=== PATIENT | female | born 1985 | race Caucasian/White ===

== ENCOUNTER 2017-12-08 21:00 | Emergency (ER) | payer OTHER ==
[2017-12-08 21:13] VITALS: BP 120/56; PULSE 74; TEMP 99; BMI 21.6
[2017-12-08] MEDS ORDERED: AMOX TR/POT CLAV 875MG/125MG TABLETS (FP) PO ONE (21:57)
--- NOTE | 2017-12-08 22:04 | PDOC ---
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 The patient was caring for a cat coming off of anesthesia and noted that he was coughing up phlegm. She decided to open up the cat's mouth and was bit, sustaining 2 puncture wounds to the left middle digit. The patient was previously bit by a cat and was treated with Augmentin and given a tetanus shot. She denies having any difficulty moving her fingers. She denies any other injuries or symptoms. 12/08/17 22:32 Allergies: dicofenac, NSAIDS. <Jazmyn Tan - Last Filed: 12/08/17 22:09> <Beth Peters - Last Filed: 12/09/17 02:49> - General Chief Complaint: Bite Stated Complaint: CAT BITE Time Seen by Provider: 12/08/17 21:10 Past History <Jazmyn Tan - Last Filed: 12/08/17 22:09> - Past Medical History CVA: No COPD: No DVT: No Dementia: No - Suicide/Smoking/Psychosocial Hx Smoking History: Never smoked Have you smoked in the past 12 months: No Hx Alcohol Use: No Drug/Substance Use Hx: No Substance Use Type: Alcohol <Beth Peters - Last Filed: 12/09/17 02:49> - Past Medical History Allergies/Adverse Reactions: Allergies Allergy/AdvReac Type Severity Reaction Status Date / Time diclofenac Allergy Verified 09/01/17 10:31 NSAIDS (Non-Steroidal Allergy Verified 09/01/17 10:31 Anti-Inflamma Home Medications: Ambulatory Orders Norethindrone AC-Eth Estradiol [Junel] 1 each PO DAILY 09/01/17 Amox-Tr/K Cl [Augmentin - 875Mg Tablet] 1 tab PO BID #14 tablet 12/08/17 Review of Systems - Review of Systems Able to Perform ROS?: Yes Comments:: 12/08/17 22:32 CONSTITUTIONAL: Absent: fever, no chills, no fatigue EYES: Absent: visual changes ENT: Absent: ear pain, no sore throat CARDIOVASCULAR: Absent: chest pain, no palpitations RESPIRATORY: Absent: cough, no SOB GI: Absent: abdominal pain, no nausea, no vomiting, no constipation, no diarrhea GENITOURINARY: Absent: dysuria, no frequency, no hematuria MUSKULOSKELETAL: Absent: back pain, no arthralgia, no myalgia SKIN: Present: (+)2 puncture wounds to left 3rd digit. Absent: rash NEURO: Absent: headache <Jazmyn Tan - Last Filed: 12/08/17 22:09> *Physical Exam - Vital Signs Last Vital Signs Temp Pulse Resp BP Pulse Ox 99.0 F 74 14 120/56 L 12/08/17 21:10 12/08/17 21:10 12/08/17 21:10 12/08/17 21:10 - Physical Exam Comments: 12/08/17 22:34 GENERAL: Well-appearing, well-nourished. No apparent distress. HEENT: Normocephalic, atraumatic. PERRL, EOM intact. CARDIOVASCULAR: Normal S1, S2. Regular rate and rhythm. PULMONARY: Clear to auscultation bilaterally. ABDOMEN: Soft, non-distended, non-tender. EXTREMITIES: (+)2 minute puncture wounds to the palmar surface of the 3rd digit of the left hand, mild erythema/edema of the distal phalanx without pain on passive/active motion. No lymphangitic streaking, no nail damage. Normal ROM in all four extremities. SKIN: Warm, dry. NEUROLOGICAL: No focal neurological deficits. <Jazmyn Tan - Last Filed: 12/08/17 22:09> - Vital Signs Last Vital Signs Temp Pulse Resp BP Pulse Ox 99.0 F 74 14 120/56 L 12/08/17 21:10 12/08/17 21:10 12/08/17 21:10 12/08/17 21:10 <Beth Peters - Last Filed: 12/09/17 02:49> Progress Note - Progress Note Progress Note: Documentation has been prepared under my direction and personally reviewed by me in its entirety. I attest that this documented accurately reflects all work, treatment, procedures and medical decision making performed by me. 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 Patient has history of cat bite in July of this year ; that was treated with Augmentin with good results. At that time, she also received tetanus prophylaxis. Exam as noted. Patient will be treated with Augmentin 875/125 twice a day for one week (taken with food). First dose given here in the emergency room. Patient was cautioned regarding signs of localized as well as regional infection. She will return to the ER if these develop. <Beth Peters - Last Filed: 12/09/17 02:49> *DC/Admit/Observation/Transfer - Attestations Scribe Attestion: 12/08/17 22:39 Documentation prepared by Jazmyn Tan, acting as medical chemist for Beth Peters MD. <Jazmyn Tan - Last Filed: 12/08/17 22:09> <Beth Peters - Last Filed: 12/09/17 02:49> Diagnosis at time of Disposition: Cat bite Qualifiers: Encounter type: initial encounter Qualified Code(s): W55.01XA - Bitten by cat, initial encounter - Discharge Dispostion Disposition: HOME Condition at time of disposition: Stable - Prescriptions Prescriptions: Amox-Tr/K Cl [Augmentin - 875Mg Tablet] 1 tab PO BID #14 tablet - Patient Instructions Printed Discharge Instructions: How to Care for a Domestic Animal Bite Additional Instructions: Augmentin 875/125 twice a day for one week; take with meals Return to ER or see your doctor if area becomes red/swollen/painful or if there is red streaking Return if you develop fever/chills
[2017-12-08] MEDS ORDERED: AMOX TR/POT CLAV 875MG/125MG TABLETS (FP) ONE (22:11)
== END 2017-12-08 22:19 | disposition home or self-care (01) ==
LOC: FER 21:00
DX: S61.253A Open bite of left middle finger without damage to nail, initial encounter (principal); W55.01XA Bitten by cat, initial encounter; Y93.89 Activity, other specified; Y92.89 Other specified places as the place of occurrence of the external cause; Y99.0 Civilian activity done for income or pay
CPT/HCPCS: 99281-25

== ENCOUNTER 2019-12-17 06:32 | Emergency (ER) | payer OTHER ==
--- OUTSIDE RECORDS SUMMARY | 2019-12-17 06:43 | XMS ---
:1985 Author Organization [facility] Support Name Relationship Address Phone [facility] Unavailable [address] [place] [address] ANTONIETA BAHENA FRIEND [address] [place] [address] Re-disclosure Warning The records that you are about to access may contain information from federally- assisted alcohol or drug abuse programs. If such information is present, then the following federally mandated warning applies: This information has been disclosed to you from records protected by federal confidentiality rules (42 CFR part 2). The federal rules prohibit you from making any further disclosure of this information unless further disclosure is expressly permitted by the written consent of the person to whom it pertains or as otherwise permitted by 42 CFR part 2. A general authorization for the release of medical or other information is NOT sufficient for this purpose. The Federal rules restrict any use of the information to criminally investigate or prosecute any alcohol or drug abuse patient.The records that you are about to access may contain highly sensitive health information, the redisclosure of which is protected by Article 27-F of the [facility] Public Health law. If you continue you may haveaccess to information: Regarding HIV / AIDS; Provided by facilities licensed or operated by the [facility] Office of Mental Health; or Provided by the [facility] Office for People With Developmental Disabilities. If such information is present, then the following [facility] mandated warning applies: This information has been disclosed to you from confidential records which are protected by state law. State law prohibits you from making any further disclosure of this information without the specific written consent of the person to whom it pertains, or as otherwise permitted by law. Any unauthorized further disclosure in violation of state law may result in a fine or nursing home sentence or both. A general authorization for the release of medical or other information is NOT sufficient authorization for further disclosure. Insurance Providers Payer name Policy type Policy ID Covered Covered democrat's Policy P georges / Coverage democrat ID relationship to Vaz Inf ormation type vaz [facility] [id number] [facility] [id number]
[2019-12-17 06:57] VITALS: BP 115/71; PULSE 73; TEMP 98.6; BMI 26.6
--- NOTE | 2019-12-17 07:04 | PDOC ---
History of Present Illness - General Chief Complaint: Vaginal Bleeding Stated Complaint: VAGINAL BLEEDING (6 WEEKS PREG) Time Seen by Provider: 12/17/19 07:01 - History of Present Illness Initial Comments: 12/17/19 07:04 HPI: This is a 34 y/o female G2T0A1 presenting to the ED because of vaginal bleeding that began 12 hours ago. The patient incidentally had a positive test 2.5 weeks ago after visiting urgent care for an unrelated reason. Last menstrual period was November 03, periods are normally regular. She has not had her confirmed with U/S but is scheduled to see a new ObGyn in two weeks. She began spotting last night, and describes it as light and pink. It then progressed to bright red blood, and the patient reports that she passed clots in the toilet. She also endorses lower abdominal cramping that feel very much like her periods. Admits to dysuria a few days ago. Denies fever/chills, lightheadedness, chest pain, shortness of breath. ROS: GENERAL/CONSTITUTIONAL: No fever/chills, diaphoresis, or weakness. HEENT: No change in vision. No ear pain. No sore throat. CARDIOVASCULAR: No chest pain, palpitations or peripheral edema RESPIRATORY: No shortness of breath, dyspnea with exertion GASTROINTESTINAL: Yes lower abdominal cramping. Denies nausea, vomiting, diarrhea or constipation. GENITOURINARY: Vaginal bleeding. Mild dysuria Denies frequency, or change in urination. MUSCULOSKELETAL: No joint or muscle swelling or pain. SKIN: No rash or hives NEUROLOGIC: No headache, vertigo, focal weakness, loss of consciousness, or change in strength/sensation. HEMATOLOGIC/LYMPHATIC: No anemia, easy bleeding, or history of blood clots. PMH: Migraines PSx: Denied Social Hx: Denied etoh, tobacco, drug use Meds: See nurse note Allergies: See nurse note OBGYN: Dr. Venegas PE: GENERAL: Awake, alert, and fully oriented, in no acute distress. Patient is appropriately conversational. Non-toxic in appearance. HEENT: Normocephalic, atraumatic. PERRLA, EOMI. No conjunctival pallor. Moist mucous membranes. NECK: Normal ROM and supple. No lymphadenopathy, JVD, or masses. CARDIOVASCULAR: Regular rate and rhythm, normal S1 and S2, no murmurs, rubs or gallops PULMONARY: No respiratory distress. Breath sounds equal, clear to auscultation bilaterally. No wheezes, rales or rhonchi. ABDOMEN: Soft, nontender, normoactive bowel sounds. No guarding, no rebound. No masses EXTREMITIES: Normal range of motion, no edema or erythema, no calf tenderness. NEUROLOGICAL: Cranial nerves II through XII grossly intact. Normal speech, normal gait SKIN: Warm, Dry, normal turgor, no rashes or lesions noted. Normal capillary refill. PELVIC:External genitalia is normal without lesions. Vaginal vault with scant blood. Os is open with small amount of light yellow discharge. No cervical motion tenderness. MDM: This is a 34 y/o female G2T0A1 presenting to the ED because of vaginal bleeding that began 12 hours ago. The patient incidentally had a positive test 2.5 weeks ago after visiting urgent care for an unrelated reason. - Patient is hemodynamically stable. Non-toxic in appearance - No confirmed intrauterine . Positive preg test at urgent care 2 weeks ago. - Abdominal exam with no focal tenderness to palpation - Type and screen, UA with culture, tylenol for pain, TVUS, pelvic exam 12/17/19 08:19 - Pelvic exam with scant blood, cervical os open. Small amount of light yellow discharge. - b-hCG 179 - Sent GC/Chl/Trich 12/17/19 09:39 UA with bacteria 1057 Urine WBC 41 - Symptomatic. Will send abx. Patient is O+, no need for Rhogam 12/17/19 10:26 IMPRESSION: No sonographic evidence of a viable intrauterine gestation. There is a heterogeneous area within the lower uterine segment possibly representing blood and/or products of conception. Clinical and laboratory correlation and follow-up ultrasonography recommended. Please see above discussion. 12/17/19 13:21 - Keflex sent to patients pharmacy. - Patient is stable to d/c with return precautions. Understands she needs to follow-up in 2 days with ObGyn for a repeat hcg. Past History - Medical History Allergies/Adverse Reactions: Allergies Allergy/AdvReac Type Severity Reaction Status Date / Time diclofenac Allergy Verified 09/01/17 10:31 NSAIDS (Non-Steroidal Allergy Verified 09/01/17 10:31 Anti-Inflamma Home Medications: Ambulatory Orders Cephalexin [Keflex] 500 mg PO BID #10 capsule 12/17/19 CVA: No COPD: No DVT: No Dementia: No - Reproductive History Is Patient Now?: Yes - Psycho-Social/Smoking History Smoking History: Never smoked Have you smoked in the past 12 months: No - Substance Abuse Hx (Audit-C & DAST Scrn) How often the patient has a drink containing alcohol: Never Score: In Men: 4 or > Positive; In Women: 3 or > Positive: 0 Screen Result (Pos requires Nsg. Audit-10AR): Negative In the last yr the pt used illegal drug/Rx for NonMed reason: No Score: Yes response is considered Positive: 0 Screen Result (Positive result requires Nsg. DAST-10): Negative *Physical Exam - Vital Signs Last Vital Signs Temp Pulse Resp BP Pulse Ox 98.6 F 73 18 115/71 100 12/17/19 06:51 12/17/19 06:51 12/17/19 06:51 12/17/19 06:51 12/17/19 06:51 Discharge - Discharge Information Problems reviewed: Yes Clinical Impression/Diagnosis: Vaginal bleeding Condition: Good Disposition: HOME - Additional Discharge Information Prescriptions: Cephalexin [Keflex] 500 mg PO BID #10 capsule - Follow up/Referral Referrals: Magnolia Venegas MD [Non Staff, Medical] - - Patient Discharge Instructions Patient Printed Discharge Instructions: DI for Miscarriage Additional Instructions: You came to the emergency department because of vaginal bleeding and a positive test. We did an ultrasound which did not show a viable . It is likely that you had a miscarriage. You may continue to have bleeding for the next few days. You can take tylenol or motrin as needed for pain. You were also found to have bacteria in your urine. We sent a prescription for Keflex to your pharmacy. Please take the medication as prescribed on the label. Please follow-up with Dr. Venegas in two days for a repeat beta-hcg which was 179 in the hospital. Please return to the ED if you have any new or worsening symptoms. Return if you have heavy bleeding, lightheadedness, shortness of breath, or fever. - Post Discharge Activity
[2019-12-17] MEDS ORDERED: ACETAMINOPHEN 325 MG TABLET (FP) PO ONE (07:28)
[2019-12-17] MEDS ORDERED: ACETAMINOPHEN 325 MG TABLET (FP) ONE (07:32)
--- NOTE | 2019-12-17 08:32 | PDOC ---
Attending Attestation - Resident Resident Name: DonnaJessica - ED Attending Attestation I have performed the following: I have examined & evaluated the patient, The case was reviewed & discussed with the resident, I agree w/resident's findings & plan, Exceptions are as noted - HPI HPI: 12/17/19 08:27 34 yo F ~6 weeks by dates, no previous sono with this p/w vaginal bleeding, bright red with clots x12 hours a/w lower abd cramping. States bleeding starting as light pink and then progressed to bright red with clots. States cramping feels like menstrual cramps. Denies urinary complaints. - Physicial Exam PE: 12/17/19 08:29 General: well appearing Abdomen: soft, nt, no rebound, no guarding Pelvic: scant red blood in vault, no CMT, no adnexal tenderness - Medical Decision Making 12/17/19 08:31 34 yo F with threatened ab vs. spontaneous ab vs. ectopic Plan: -labs -urine -TVUS -tylenol -reassess This clinical encounter is taking place during a federal and state health care emergency attributable to the novel Mckin[place] Virus pandemic. The [employer] of the Department of Health and Human Services has declared, pursuant to the Public Health Service Act 319F-3 (42 U.S.C. 247d-6d), that a covered persons activities related to medical countermeasures against COVID-19 will be immune from liability under Federal and State law. 12/17/19 10:37 No viable IUP on sono. Possible blood vs. POC in lower uterine segment. Will d/c with return precautions, pt. to f/u with [facility] in 48 hours for repeat beta. Discharge - Discharge Information Problems reviewed: Yes Clinical Impression/Diagnosis: Vaginal bleeding - Additional Discharge Information Prescriptions: Cephalexin [Keflex] 500 mg PO BID #10 capsule - Follow up/Referral Referrals: Magnolia Venegas MD [Non Staff, Medical] - - Patient Discharge Instructions Patient Printed Discharge Instructions: DI for Miscarriage Additional Instructions: You came to the emergency department because of vaginal bleeding and a positive test. We did an ultrasound which did not show a viable . It is likely that you had a miscarriage. You may continue to have bleeding for the next few days. You can take tylenol or motrin as needed for pain. You were also found to have bacteria in your urine. We sent a prescription for Keflex to your pharmacy. Please take the medication as prescribed on the label. Please follow-up with Dr. Venegas in the next few days. Please return to the ED if you have any new or worsening symptoms. Return if you have heavy bleeding, lightheadedness, shortness of breath, or fever. - Post Discharge Activity
[2019-12-17 08:46] LABS: EPI CELLS >36 /uL (0-25.1); HYALINE CASTS 1 /uL (0-3.1); URINE APPEARANCE CLOUDY; URINE BACTERIA 1057 /uL (0-1359); URINE BILIRUBIN NEGATIVE (NEGATIVE); URINE COLOR YELLOW; URINE GLUCOSE (UA) NEGATIVE (NEGATIVE); URINE KETONE NEGATIVE (NEGATIVE); URINE LEUK ESTERASE NEGATIVE (NEGATIVE); URINE NITRITE NEGATIVE (NEGATIVE); URINE PROTEIN NEGATIVE (NEGATIVE); URINE RBC 45 /uL (0-23.9); URINE UROBILINOGEN 0.2 mg/dL (0.2-1.0); URINE WBC 41 /uL (0-25.8)
== END 2019-12-17 11:36 | disposition home or self-care (01) ==
LOC: JER 06:32
DX: N93.9 Abnormal uterine and vaginal bleeding, unspecified (principal)
CPT/HCPCS: 36415; 76817-TC; 81003; 84702; 86850; 86900; 86901; 87086; 99284-25